=== PATIENT | female | born 1970 | race Caucasian/White ===

== ENCOUNTER 2017-01-19 16:19 | Outpatient (CLI) | payer BC ==
[2017-01-19 17:23] LABS: Hematocrit 42.7 % (36.0-47.0); Red Blood Cell (RBC) Count 4.21 mill/uL (4.20-5.40); White Blood Cell (WBC) Count 7.3 thou/uL (4.8-10.8)
--- NOTE | 2017-01-21 10:02 | EKG ---
Test Reason : Blood Pressure : / mmHG Vent. Rate : 084 BPM Atrial Rate : 084 BPM P-R Int : 146 ms QRS Dur : 078 ms QT Int : 372 ms P-R-T Axes : 071 080 046 degrees QTc Int : 439 ms Normal sinus rhythm Possible Left atrial enlargement Borderline ECG When compared with ECG of 20-APR-2011 11:30, Questionable change in QRS duration Confirmed by KELLIE HARGROVE, SDenilson ([id number]) on 01/21/2017 10:02:16 AM Referred By: QUITA Confirmed By:DR. Justyna HOPKINS MD
== END 2017-01-19 16:20 | disposition home or self-care (01) ==
LOC: LABBT 16:19
PROVIDERS: ATTEND Obstetrics & Gynecology
DX: Z01.812 Encounter for preprocedural laboratory examination (principal); D27.1 Benign neoplasm of left ovary; Z80.41 Family history of malignant neoplasm of ovary
CPT/HCPCS: 84703; 85027; 86850; 86900; 86901; 93005; 93010

== ENCOUNTER 2017-01-23 07:54 | Day surgery (SDC) | payer BC ==
[2017-01-19 16:52] VITALS: BMI 30.9
--- NOTE | 2017-01-23 05:46 | HP ---
REASON FOR ADMISSION: Left dermoid, family history of breast cancer, progesterone releasing IUD grea ter than 5 years old. SCHEDULED PROCEDURES: Laparoscopic left salpingo-oophorectomy, right salpingectomy and removal of IU D. HISTORY OF PRESENT ILLNESS: Ms. Espinoza is a 46-year-old 2, para 1, AB 1, status post C-sect ion x1 who had a CT for cholecystitis a couple of months ago. She was noted to have a left dermoid a t that CT. Ultrasound in my office confirmed its appearance, its presence at 5 cm in its appearance consistent with mature cystic teratoma. She desires definitive surgical management. She also has a family history of breast cancer in maternal aunt at less than 50 years of old age, it has been approv ed for a prophylactic salpingectomy for ovarian cancer risk reduction. She desires removal of her IU D. 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 No history of dysplasia or STD. PAST SURGICAL HISTORY: Cholecystectomy, and appendectomy. PAST MEDICAL HISTORY: Essential hypertension. ALLERGIES: None. MEDICATIONS: Baby aspirin, lisinopril and omeprazole. ALLERGIES: None. SOCIAL HISTORY: Denies tobacco, alcohol or drug use. FAMILY HISTORY AND REVIEW OF SYSTEMS: Noncontributory. PHYSICAL EXAMINATION: GENERAL: White female in no acute distress. VITAL SIGNS: Height 5 feet 5 inches. Weighs 195 pounds. BMI 32. Blood pressure 124/82. HEENT: Within normal limits. LUNGS: Clear to auscultation bilaterally. HEART: Regular rhythm. BREASTS: No masses bilaterally. ABDOMEN: Soft and nontender. No rebound or guarding. PELVIC: Vulva without lesions. Vagina without discharge. Cervix nulliparous. IUD string. Uterus anteverted, slightly deviated right. Bimanual exam, questionable fullness on the left. EXTREMITIES: Without clubbing, cyanosis or edema. LABORATORY AND X-RAY FINDINGS: Ultrasound reveals the finding as noted in the HPI. Hematocrit on was 42%. Serum test was negative. Blood type is A positive. IMPRESSION: 1. A 5 cm left adnexal mature cystic mass consistent with mature cystic teratoma. 2. Desires risk reducing salpingectomy. 3. Desires removal of IUD. PLAN: Laparoscopic removal of left tube and ovary, right tube and IUD with da Petey robot with appro priate antibiotic and DVT prophylaxis on 01/23/2017, at [facility].
[2017-01-23] MEDS ORDERED: CEFAZOLIN/Water 2 GM/20 ML SYRINGE ONE (08:07)
[2017-01-23] MEDS ORDERED: Bupivacaine/Epinephrine 0.25% 30 ML VIAL ONE (09:49)
[2017-01-23] MEDS ORDERED: Fentanyl 250 MCG/5 ML VIAL ONE (09:55)
[2017-01-23] MEDS ORDERED: Midazolam HCl 2 mg/2 ml Vial ONE (10:06)
[2017-01-23] MEDS ORDERED: Scopolamine 1.5 mg/72 hour Patch ONE (10:06)
[2017-01-23] MEDS ORDERED: Glycopyrrolate 0.2 MG/ML 5 ML SYRINGE ONE (10:17)
[2017-01-23] MEDS ORDERED: Ketorolac Tromethamine 30 MG/ML VIAL ONE (10:17)
[2017-01-23] MEDS ORDERED: Propofol 200 MG/20 ML VIAL ONE (10:17)
[2017-01-23] MEDS ORDERED: Lidocaine 1% PF 5 ML VIAL ONE (10:17)
[2017-01-23] MEDS ORDERED: Ondansetron HCl/PF 4 MG/2 ML Vial ONE (10:17)
[2017-01-23] MEDS ORDERED: Dexamethasone 20 MG/5 ML VIAL ONE (10:17)
[2017-01-23] MEDS ORDERED: Fentanyl 100 MCG/2 ML VIAL ONE (12:10)
--- NOTE | 2017-01-23 12:46 | OP ---
DATE OF PROCEDURE: 01/23/2017 PREOPERATIVE DIAGNOSES: Left mature cystic teratoma with family history of breast cancer and IUD in situ. POSTOPERATIVE DIAGNOSES: Left mature cystic teratoma with family history of breast cancer and IUD in situ. PROCEDURE: Laparoscopic left salpingo-oophorectomy with da Petey robot assist right salpingectomy an d IUD removal. SURGEON: Emiliano Olivo M.D. AUDIOPROSTHOLOGIST: Brenden Franco M.D. ANESTHESIA: General endotracheal. ESTIMATED BLOOD LOSS: Less than 50 mL. MEDICATIONS: Two grams Ancef preincision. DVT PROPHYLAXIS: SCDs. DRAINS: Alfaro to gravity intraoperatively and removed at the end of the case. PATHOLOGY/SPECIMENS: 1. Left ovary. 2. Left tube. 3. Right tube. 4. IUD, not sent for path grossly identified intact intraoperative. DESCRIPTION OF OPERATIVE PROCEDURE: After obtaining proper consent, the patient was taken to the ope rating room where general endotracheal anesthesia was achieved without difficulty. The patient was p repped and draped in the usual manner in dorsal lithotomy position. Side hand speculum was placed in the vagina. The cervix was identified and grasped with single tooth tenaculum at 12 o'clock. Hemos tat was used to grasp the Mirena IUD string, the IUD was removed easily intact and disposed of. The [employer] manipulator placed. Tenaculum and speculum were removed. Alfaro catheter placed, draining the bladder of clear urine. The roadability machine operator changed his gloves and turned his attention to the abdominal po rtion of the procedure. Five mL of Marcaine injected at the base of umbilicus and a 12 mm skin incis ion made. Freeze needle placed in the abdominal cavity. Confirmation of entry into peritoneal cavit y via a saline drop test. Insufflation was carried out with carbon dioxide max pressure 15. Once th is was achieved, the 12 mm trocar was placed, laparoscope was placed inside the abdominal cavity and confirmation of entry into the peritoneal cavity was noted. Right and left lateral trocars, 8 mm da Petey were placed and a 5 mm right upper quadrant chiropractic assistant port, an 11 mm suprapubic trocar were maximilian alfie under direct visualization. The patient was placed in steep Trendelenburg position and the da [employer] robot docked. Monopolar scissors placed in the right hand and bipolar fenestrated forceps in the left. The operative findings were noted. The right fallopian tube was mobilized, coagulated at the mesosalpinx and transected all the way up to the level of its insertion to the uterine fundus where it was excised and removed through the 11 mm trocar intact. Attention was turned to the left where t he teratoma was obvious and identified. Inspection of the right ovary revealed it to be grossly norm al. The fallopian tube was removed, excising the mesosalpinx over the surface of the dermoid and suzie n to the level of the insertion of the uterus, it was excised and taken out through the 11 mm trocar port. The infundibulopelvic ligament was identified. Ureter identified. coagulation of the IP ligam ent directly adjacent to the adnexa was carried out and transected. This was carried through the bro ad ligament up to a level utero-ovarian ligament was coagulated and transected as well. At this poin t in time, the specimen retrieval bag was introduced through the 11 mm trocar and the specimen placed inside intact. Da Petey instruments were removed. The robot undocked and the retrieval sac pulled to the surface through the 11 mm trocar site. Army Hiller was used to facilitate visualization of the fascia and the fascial incision at this level was enlarged, approximately 15 mm. Using [facility] clamp s the ovary and dermoid were entered, sebaceous material with blonde hair was noted. It was suctione d out, morselization of the adnexa was required through the neck of the retrieval bag and then the en tire specimen and retrieval bag removed. Suction irrigation was carried out of this trocar site. La paroscopic inspection revealed good hemostasis throughout. The trocar closure kit was used to reappr oximate the fascia at the level of the suprapubic trocar using an 0 Vicryl suture. The abdomen was d esufflated of carbon dioxide, all trocars removed. The skin reapproximated x5 using 4-0 Monocryl and Dermabond. The umbilical trocar was closed deeply using an 0 Vicryl on a UR5 needle. Hulka manipul ator was removed. Alfaro catheter removed. The patient was awakened, extubated, and taken to recover y room in good condition.
== END 2017-01-23 13:28 | disposition home or self-care (01) ==
LOC: SDC 07:54
PROVIDERS: ATTEND Obstetrics & Gynecology
PROC: 0UT14ZZ Resection of Left Ovary, Percutaneous Endoscopic Approach (ICD-10-PCS; principal; 2017-01-23)
PROC: 0UT74ZZ Resection of Bilateral Fallopian Tubes, Percutaneous Endoscopic Approach (ICD-10-PCS; principal; 2017-01-23)
PROC: 0UPDXHZ Removal of Contraceptive Device from Uterus and Cervix, External Approach (ICD-10-PCS; principal; 2017-01-23)
DX: D27.1 Benign neoplasm of left ovary (principal); N83.8 Other noninflammatory disorders of ovary, fallopian tube and broad ligament; I10 Essential (primary) hypertension; Z79.82 Long term (current) use of aspirin; Z79.899 Other long term (current) drug therapy; Z97.5 Presence of (intrauterine) contraceptive device; Z90.49 Acquired absence of other specified parts of digestive tract; Z90.89 Acquired absence of other organs; Z98.890 Other specified postprocedural states
CPT/HCPCS: 88307; 96374; S2900; J0131; J1100; J1885; J2001; J2250; J2405; J2704; J3010

== ENCOUNTER 2017-03-13 12:32 | Outpatient (CLI) | payer BC | END 2017-03-13 12:33 | disposition home or self-care (01) | LOC: BICMAMMO 12:32 | PROVIDERS: ATTEND Obstetrics & Gynecology | DX: Z12.31 Encounter for screening mammogram for malignant neoplasm of breast (principal); Z80.3 Family history of malignant neoplasm of breast | CPT/HCPCS: 77063; 77067 ==